=== PATIENT | female | born 1985 | race Caucasian/White ===

== ENCOUNTER 2022-04-26 18:41 | Inpatient (IN) ==
[2022-04-26] MEDS ORDERED: OXYTOCIN 30 UNITS/500 ML BAG IV PRN (18:56)
[2022-04-26] MEDS ORDERED: LIDOCAINE 1% LOCAL 20 ML VIAL INFIL PRN (18:56)
--- NOTE | 2022-04-26 19:02 | History & Physical Report ---
Date of Service April 26, 2022 Assessment & Plan (1) Active labor at term: Plan: 37-year-old -0-1-1 at 38 weeks and 4 days of gestation presented in active labor with contractions, Vital signs stable afebrile, heart rate reassuring, GBS negative, Desires epidural for pain, Plan to admit, monitor, labs, epidural for pain and anticipate . (2) Thalassemia: (3) Opioid dependence on agonist therapy: History of Present Illness Primary Care Provider: Whitney Peters DO Patient is a 37-year-old -0-1-1 at 38 weeks and 4 days of gestation who has been feeling contractions since early this morning soon after midnight. They have been irregular all day and they became more painful and irregular for the last 2 hours. She passed bloody mucus earlier but no active bleeding nor leaking. She reports good movements. Her has been uncomplicated except, 1) on Subutex for history of opioid use. 2) Smoker 3) Thalassemia GBS negative. Allergies Allergy/AdvReac Type Severity Reaction Status Date / Time latex Allergy Mild RASH HIVE Verified 10/01/19 14:12 No Known Drug Allergies Allergy Mild . Verified 10/01/19 14:12 adhesive Allergy Unknown red rashed Verified 10/01/19 14:12 rash;welts Home Medications Medication Instructions Recorded Confirmed Type buprenorphine 8 mg-naloxone 2 mg 1 tab sublingual BID 08/27/18 04/25/22 History sublingual tablet ondansetron 4 mg disintegrating 4 mg PO Q6H PRN nausea and 08/27/18 04/25/22 Rx tablet vomiting #20 tabs cyanocobalamin (vitamin B-12) mcg 04/25/22 History 1,000 mcg sublingual tablet folic acid 1 mg tablet 1 mg PO DAILY 04/25/22 04/25/22 History prenat.vits,ashley,[id number] 1 tab PO DAILY 04/25/22 04/25/22 History Patient History Medical History (Updated 04/26/22 @ 19:01 by Devika Graham MD) Endometriosis GERD (gastroesophageal reflux disease) Opioid dependence on agonist therapy Thalassemia (04/02/12) Surgical History History of laparoscopic cholecystectomy History of laparoscopy (04/17/12) Social History Smoking Status: Current every day smoker Cigarettes Per Day: 1/4 pack per day; Hx Alcohol Use: No Hx Substance Use: No Preferred Language: Icelandic Communication Ability: Effective Access Services Representative Required: No Beliefs That Will Affect Care: None marital status: Current Living Situation: Spouse Current Living Situation Comment: Lives with Feels Safe at Home: Yes Assistive Devices: Glasses OB History Full-term on September 2012, female, 8 pounds 1 ounce, 1 [employer] History No history of STDs, restrictions of herpes, chlamydia, gonorrhea Review of Systems as per Subjective / HPI Physical Exam Constitutional: WD/WN, vitals as above well developed, well nourished and + acute distress (With contractions on) Gastrointestinal (Abdomen): normal bowel sounds, soft, nontender, no hepatosplenomegaly (Gravid) Genitourinary: normal external appearance OB Exam Abdomen: + vertex Manual OB Exam: + cervical dilation 7 cm, + cervical effacement 80% and + station -2 OB Exam Monitor Tracing: + external uterine monitor used and + category I
[2022-04-26] MEDS: LACTATED RINGER'S 1,000 ML IV PRN ×2 (19:15→20:10)
[2022-04-26 19:26] LABS: Hematocrit (blood only) 28.5 % (37.0-47.0); Hemoglobin 9.2 g/dl (12.0-16.0); Mean Corpuscular Hemoglobin 24.1 pg (25.0-34.0); Mean Corpuscular Hgb Conc 32.3 g/dL (32.0-36.0); Mean Corpuscular Volume 74.6 fL (80.0-100.0); Nucleated RBC # (auto) 0.04 K/uL (0-0.12); Nucleated RBC % (auto) 0.3 %; Platelet Count 145 K/uL (130-400); RDW Standard Deviation 44.8 fL (36.4-46.3); Red Blood Count 3.82 M/uL (4.20-5.40); White Blood Count 12.62 K/ul (4.8-10.8)
[2022-04-26] MEDS ORDERED: LIDOCAINE 2%/EPINEPHRINE 1:200,000 20 ML SDV ONE (19:31)
[2022-04-26] MEDS ORDERED: ePHEDrine sulfate 50 MG/ML AMP ONE (19:31)
[2022-04-26] MEDS ORDERED: fentaNYL citrate 100 MCG/2 ML VIAL ONE (19:31)
[2022-04-26] MEDS ORDERED: BUPIVACAINE 0.25% 30 ML VIAL ONE (19:31)
[2022-04-26] MEDS ORDERED: SODIUM CHLORIDE 0.9% INJ 10 ML VIAL ONE (19:31)
[2022-04-26] MEDS ORDERED: fentaNYL 2MCG/ML ROPIVACAINE 1.25MG/ML 100 ML BAG EPI ONE (19:32)
--- NOTE | 2022-04-26 19:37 | Anesthesiology Consultation ---
Date of Service April 26, 2022 Assessment & Plan (1) Encounter for pre-operative examination: Chart Review Chart Review: Acceptable Risk for Labor Epidural Consults Requested none ASA ASA2 Proposed Anesthesia Anesthesia Type: Labor Epidural Risk / Benefits Reviewed With: PT / POA / Parent / Guardian, Accepts Plan and Informed Consent Obtained History Height/Weight Height: 5 ft 5 in Weight: 91.172 kg Allergies Allergy/AdvReac Type Severity Reaction Status Date / Time latex Allergy Mild RASH HIVE Verified 10/01/19 14:12 No Known Drug Allergies Allergy Mild . Verified 10/01/19 14:12 adhesive Allergy Unknown red rashed Verified 10/01/19 14:12 rash;welts Medications Home Medications Medication Instructions Recorded Confirmed Last Taken buprenorphine 8 mg-naloxone 2 mg 1 tab sublingual BID 08/27/18 04/25/22 04/25/22 sublingual tablet ondansetron 4 mg disintegrating 4 mg PO Q6H PRN nausea and 08/27/18 04/25/22 02/22/22 tablet vomiting #20 tabs cyanocobalamin (vitamin B-12) mcg 04/25/22 04/25/22 1,000 mcg sublingual tablet folic acid 1 mg tablet 1 mg PO DAILY 04/25/22 04/25/22 04/25/22 prenat.vits,ashley,[id number] 1 tab PO DAILY 04/25/22 04/25/22 04/24/22 Active Medications Generic Name Dose Route Start Last Admin Trade Name Freq PRN Reason Stop Dose Admin Lactated Ringer's 1,000 mls @ 150 mls/hr 04/26/22 18:56 04/26/22 19:15 Lr IV 04/28/22 18:55 999 mls/hr .[id number] PRN Administration L&D Protocol Protocol Past Medical History Medical History (Updated 04/26/22 @ 19:37 by Jamal Vaca DO) Endometriosis GERD (gastroesophageal reflux disease) Opioid dependence on agonist therapy Thalassemia (04/02/12) Exercise / Class Metabolic Activity II 4-5 Yardwork/Stairs/Walk up hill Past Surgical History Surgical History History of laparoscopic cholecystectomy History of laparoscopy (04/17/12) Past Anesthesia History No Hx of Anesthesia Complications and No Family Hx of Anesthesia Complications History of PONV No Hx of PONV and No Hx of Motion Sickness Social History Smoking Status: Current every day smoker tobacco type: cigarettes Smoking cigarettes per day: 5 Hx Alcohol Use: No Hx Substance Use: No Physical Exam Vital Signs Last Vital Signs Temp 98.2 F 04/26/22 19:16 Pulse 88 04/26/22 19:22 Resp 20 04/26/22 19:16 BP 115/70 04/26/22 19:22 ENMT Mouth: no dentition abnormality Thyromental Distance: > or= 3.5 Finger Breadths Mallampati Class: II Neck normal visual inspection Respiratory normal respiratory effort Auscultation: lungs clear to auscultation bilaterally Cardiovascular Rate/Rhythm: regular rate and regular rhythm Testing Laboratory Results 04/26/22 19:10
[2022-04-26 19:42] LABS: Albumin Globulin Ratio 1.5 (0.9-2); Albumin Level 3.7 gm/dl (3.4-5.0); BUN Creatinine Ratio 16.4 (10-20); Bilirubin,Total 1.4 mg/dl (0.2-1.0); Creatinine Clr Calc Pharmacy 142.2 ml/min; Est GFR (African American) 135.2 ml/min; Est GFR (Non-African American) 116.6 ml/min; Globulin 2.5 gm/dl (2.5-4.0); Potassium 3.6 mmol/L (3.5-5.1); Total Protein 6.2 gm/dl (6.0-8.3)
[2022-04-26] MEDS ORDERED: diphenhydrAMINE 50 MG/ML VIAL IV PRN (19:58)
[2022-04-26] MEDS ORDERED: ONDANSETRON INJ 2 MG/ML 2 ML VIAL IV PRN (19:58)
[2022-04-26] MEDS ORDERED: ePHEDrine sulfate 50 MG/ML AMP IV PRN (19:58)
[2022-04-26] MEDS ORDERED: NALBUPHINE HCL INJ 10 MG/ML AMP IV PRN (19:58)
[2022-04-26] MEDS ORDERED: NALOXONE HCL 1 MG in SODIUM CHLORIDE 0.9% 1000ML 1,000 ML IV PRN (19:58)
[2022-04-26] MEDS ORDERED: NALOXONE HCL 0.4 MG/1 ML VIAL/CARP IV PRN (19:58)
[2022-04-26] MEDS ORDERED: fentaNYL 2MCG/ML ROPIVACAINE 1.25MG/ML 100 ML BAG EPI PRN (19:58)
[2022-04-26] MEDS ORDERED: SODIUM CHLORIDE 0.9% 250 ML IV PRN (20:20)
[2022-04-26 21:36] LABS: Amphetamines+Metham, Urine Neg (Neg); Barbiturates, Urine Neg (Neg); Benzodiazepine, Urine Neg (Neg); Cocaine, Urine Neg (Neg); MDMA (Ecstacy), Urine Neg (Neg); Methadone, Urine Neg (Neg); Opiate, Urine Neg (Neg); Phencyclidine, Urine Neg (Neg)
[2022-04-27] MEDS ORDERED: OXYTOCIN 30 UNITS/500 ML BAG IV PRN ×2 (00:01→02:26)
--- NOTE | 2022-04-27 00:18 | Delivery Summary ---
Vaginal Delivery Summary Date of Service April 27, 2022 Vaginal Delivery Summary The patient was found to be fully dilated and desire to push. She pushed for about 1.5 hours and delivered the head in direct OP position, facing up. The shoulders were delivered with minimal traction. And the baby was handed off to the mother, where mouth and nose were suctioned and the cord was clamped x2 and cut it 1 minute delay. The baby was vigorously moving and crying. Then the vagina and perineum were checked for lacerations. There was a 2nd degree perineal laceration at the posterior fourchette. Rectal exam was done and good sphincter tone was noted. The gloves were changed. Perineal body mucles were held with Allis clamp and reapproximated around sphincter. Then the vagina and rest of the muscles were repaired with 2-0 Vicryl in a running fashion and excellent hemostasis achieved. There was 1st degree laceration on right labia and it was repaired with 3-0 Vicryl. Then the placenta was found to be in the vagina, delivered spontaneously as intact and complete. Uterus was explored and found to be empty, lower segment was cleared of all clots and debris's. EBL was 200 ml and the fundus was firm. The mom and baby tolerated procedure well. Baby was a viable male , Apg ars 7/9 and weight is pending. No complications happened and I was present during the whole procedure. At the end of the procedure the sponge needle instrument count was correct x2.
[2022-04-27] MEDS ORDERED: MINERAL OIL 30 ML UDC ONE (00:38)
--- NOTE | 2022-04-27 01:17 | Obstetrical Progress Note ---
Date of Service April 27, 2022 Assessment & Plan Admission and Anticipated Discharge Date Admission Date: April 26, 2022 Subjective Patient has received epidural and wanted to sleep Wanted AROM after [place] Kristina GARCIA'ed at 00:04, clear fluid Cervix was 9/ 90%/0 After 20 minutes or she felt pressure and wanted to push. She has been pushing since 00:23 and head is at +2 to +3 with pushing. FHR categ I Ctxs q 2-3 min Continue to monitor and pushing. Results & Data ([facility]) Vital Signs (Past 12 Hours) Vital Signs Temp Pulse Resp BP Pulse Ox 04/27/22 01:12 72 99 04/27/22 01:11 87 91 04/27/22 01:07 76 98 04/27/22 01:05 79 89 L 04/27/22 01:02 101 H 100 04/27/22 00:59 75 87 L 04/27/22 00:57 103 H 100 04/27/22 00:52 97 H 100 04/27/22 00:47 100 04/27/22 00:47 76 04/27/22 00:47 78 136/61 04/27/22 00:42 77 100 04/27/22 00:40 76 93 04/27/22 00:37 90 100 04/27/22 00:32 93 H 100 04/27/22 00:27 84 99 04/27/22 00:22 112 H 100 04/27/22 00:17 98 04/27/22 00:17 84 04/27/22 00:17 67 110/63 04/27/22 00:12 71 100 04/27/22 00:07 79 99 04/27/22 00:04 90 88 L 04/27/22 00:02 69 100 04/27/22 00:01 75 121/83 04/26/22 23:57 84 97 04/26/22 23:52 72 97 04/26/22 23:47 72 97 04/26/22 23:45 78 113/68 04/26/22 23:42 84 98 04/26/22 23:37 77 98 04/26/22 23:32 77 97 04/26/22 23:31 93 H 132/67 04/26/22 23:27 76 98 04/26/22 23:22 73 98 04/26/22 23:17 87 98 04/26/22 23:15 77 131/63 04/26/22 23:12 75 98 04/26/22 23:07 87 98 04/26/22 23:02 78 98 04/26/22 23:03 78 116/55 L 04/26/22 22:55 18 04/26/22 22:55 36.6 C 18 04/26/22 22:57 77 99 04/26/22 22:52 75 98 04/26/22 22:47 79 134/89 99 04/26/22 22:42 75 98 04/26/22 22:37 71 99 04/26/22 22:32 81 99 04/26/22 22:30 146 H 114/71 04/26/22 22:27 73 97 04/26/22 22:22 65 99 04/26/22 22:17 81 100 04/26/22 22:15 71 113/66 04/26/22 22:12 70 99 04/26/22 22:07 73 98 04/26/22 22:02 85 98 04/26/22 22:00 74 113/68 04/26/22 21:57 84 99 04/26/22 21:52 71 97 04/26/22 21:47 70 98 04/26/22 21:46 88 115/72 04/26/22 21:42 67 97 04/26/22 21:37 68 98 04/26/22 21:32 68 98 04/26/22 21:30 76 116/65 04/26/22 21:27 69 98 04/26/22 21:22 76 98 04/26/22 21:17 76 99 04/26/22 21:15 75 111/69 04/26/22 21:12 85 100 04/26/22 21:07 74 99 04/26/22 21:02 77 99 04/26/22 21:01 73 108/72 04/26/22 20:57 81 100 04/26/22 20:52 74 98 04/26/22 20:47 77 98 04/26/22 20:45 80 95/57 L 04/26/22 20:42 78 98 04/26/22 20:37 82 100 04/26/22 20:32 81 100 04/26/22 20:31 74 102/57 L 04/26/22 20:27 76 98 04/26/22 20:22 89 99 04/26/22 20:17 84 99 04/26/22 20:16 88 122/75 04/26/22 20:12 85 100 04/26/22 20:07 82 99 04/26/22 20:02 83 99 04/26/22 20:00 88 114/72 04/26/22 19:57 99 04/26/22 19:57 88 04/26/22 19:57 93 H 125/76 04/26/22 19:54 78 133/75 04/26/22 19:52 97 H 100 04/26/22 19:51 85 136/78 04/26/22 19:47 88 100 04/26/22 19:48 88 135/80 04/26/22 19:45 93 H 130/75 04/26/22 19:43 104 H 90 04/26/22 19:42 97 H 148/80 H 100 04/26/22 19:37 100 H 100 04/26/22 19:22 88 115/70 04/26/22 19:16 36.8 C 88 20 115/70
[2022-04-27] MEDS ORDERED: DIPHTHERIA/TETANUS/PERTUSSIS 0.5mL SYR/VIAL (Age 7+yrs) IM ONE (02:26)
[2022-04-27] MEDS ORDERED: HYDROCORTISONE ACETATE 25 MG SUPP PR PRN (02:26)
[2022-04-27] MEDS ORDERED: MEASLES, MUMPS & RUBELLA VIRUS VIAL SQ ONE (02:26)
[2022-04-27] MEDS ORDERED: oxyCODONE/ACETAMINOPHEN 5mg/325mg TAB PO PRN (02:26)
[2022-04-27] MEDS ORDERED: ACETAMINOPHEN 325 MG TAB PO PRN (02:26)
[2022-04-27] MEDS ORDERED: BENZOCAINE 20% AER SPR 82.5 GM CAN EXT PRN (02:26)
[2022-04-27] MEDS: IBUPROFEN 600 MG TAB PO PRN ×4 (04:37→20:16)
[2022-04-27] MEDS: FERROUS SULFATE 325 MG TAB PO SCH (08:03)
[2022-04-27] MEDS: DOCUSATE SODIUM 100 MG CAP PO SCH ×2 (08:03→20:16)
[2022-04-27] MEDS: PRENATAL VITAMIN 1 TAB PO SCH (08:03)
--- NOTE | 2022-04-27 09:02 | Anesthesia Procedure Note ---
Date of Service April 27, 2022 Anesthesia Post Epidural Note Vital Signs Vital Signs: Temp Pulse Resp BP Pulse Ox O2 Del Method 98.2 F 74 20 122/73 97 04/27/22 07:45 04/27/22 07:45 04/27/22 07:45 04/27/22 07:45 04/27/22 07:45 04/27/22 07:45 Pain Intensity Perineal: Pain Intensity: 6 Notes Mental Status: alert / awake / arousable and participated in evaluation Nausea / Vomiting: adequately controlled Pain: adequately controlled Airway Patency, RR, SpO2: stable & adequate BP & HR: stable & adequate Hydration State: stable & adequate Neuraxial Anesthesia: was administered and sensory block is resolving Anesthetic Complications: no major complications apparent and Pt Satisfied with anesthetic care Epidural: Removed without complications and With tip intact
[2022-04-27] MEDS: buprenorphine HCL 8 MG SUBL SL SCH (12:18)
[2022-04-27] MEDS ORDERED: bisacodyL 5 MG TABEC PO SCH (20:00)
[2022-04-28 07:20] LABS: Hematocrit (blood only) 26.8 % (37.0-47.0); Hemoglobin 8.5 g/dl (12.0-16.0); Mean Corpuscular Hemoglobin 23.9 pg (25.0-34.0); Mean Corpuscular Hgb Conc 31.7 g/dL (32.0-36.0); Mean Corpuscular Volume 75.5 fL (80.0-100.0); Mean Platelet Volume 13.8 fL (9.4-12.4); Nucleated RBC # (auto) 0.03 K/uL (0-0.12); Nucleated RBC % (auto) 0.3 %; Platelet Count 141 K/uL (130-400); RDW Coefficient of Variation 18.1 % (11.5-14.5); RDW Standard Deviation 46.3 fL (36.4-46.3); Red Blood Count 3.55 M/uL (4.20-5.40); White Blood Count 11.16 K/ul (4.8-10.8)
--- NOTE | 2022-04-28 07:35 | Obstetrical Progress Note ---
Date of Service April 28, 2022 Assessment & Plan Admission and Anticipated Discharge Date Admission Date: April 26, 2022 Subjective Patient is seen and examined. She feels well, no complaints. Ambulating without dizziness Voiding without difficulty Tolerating regular diet with out N&V Bleeding is minimal No fever/ chills/ CP/ SOB/ N&V/ Leg pain Bottle feeding without problems Vital Signs Temp Pulse Resp BP Pulse Ox O2 Del Method 04/27/22 23:10 36.5 C 85 18 119/75 98 Room Air 04/27/22 20:00 36.7 C 82 18 126/74 98 Room Air Lab Results 04/26/22 04/26/22 04/26/22 Range/Units 19:05 19:10 19:10 WBC 12.62 H (4.8-10.8) K/ul RBC 3.82 L (4.20-5.40) M/uL Hgb 9.2 L (12.0-16.0) g/dl Hct 28.5 L (37.0-47.0) % MCV 74.6 L (80.0-100.0) fL MCH 24.1 L (25.0-34.0) pg MCHC 32.3 (32.0-36.0) g/dL RDW Std Deviation 44.8 (36.4-46.3) fL RDW Coeff of Angel 18.0 H (11.5-14.5) % Plt Count 145 (130-400) K/uL MPV (9.4-12.4) fL Absolute Nucleated RBC 0.04 (0-0.12) K/uL Nucleated RBC % (auto) 0.3 % Sodium (136-145) mmol/L Potassium (3.5-5.1) mmol/L Chloride (98-107) mmol/L Carbon Dioxide (21-32) mmol/L Anion Gap (3-11) BUN (6-23) mg/dl Creatinine (0.6-1.2) mg/dl Est Cr Clr Drug Dosing ml/min Est GFR ( Amer) ml/min Est GFR (Non-Af Amer) ml/min BUN/Creatinine Ratio (10-20) Glucose (70-99(Fasting)) mg/dl Calcium (8.5-10.1) mg/dl Total Bilirubin (0.2-1.0) mg/dl AST (13-39) U/L ALT (7-52) U/L Alkaline Phosphatase (34-104) U/L Total Protein (6.0-8.3) gm/dl Albumin (3.4-5.0) gm/dl Globulin (2.5-4.0) gm/dl Albumin/Globulin Ratio (0.9-2) Urine Opiates Screen (Neg) Ur Methadone, Qual (Neg) Urine Barbiturates (Neg) Ur Phencyclidine (PCP) (Neg) U Amphetamin/Meth Scrn (Neg) MDMA (Ecstasy) Screen (Neg) U Benzodiazepines Scrn (Neg) Ur Cocaine Metabolite (Neg) U Marijuana (THC) Screen (Neg) SARS-CoV-2, RNA, NAAT NEGATIVE (NEGATIVE) Blood Type A Positive Antibody Screen NEGATIVE Crossmatch See Detail 04/26/22 04/26/22 04/28/22 Range/Units 19:10 20:45 05:58 WBC 11.16 H (4.8-10.8) K/ul RBC 3.55 L (4.20-5.40) M/uL Hgb 8.5 L (12.0-16.0) g/dl Hct 26.8 L (37.0-47.0) % MCV 75.5 L (80.0-100.0) fL MCH 23.9 L (25.0-34.0) pg MCHC 31.7 L (32.0-36.0) g/dL RDW Std Deviation 46.3 (36.4-46.3) fL RDW Coeff of Angel 18.1 H (11.5-14.5) % Plt Count 141 (130-400) K/uL MPV 13.8 H (9.4-12.4) fL Absolute Nucleated RBC 0.03 (0-0.12) K/uL Nucleated RBC % (auto) 0.3 % Sodium 135 L (136-145) mmol/L Potassium 3.6 (3.5-5.1) mmol/L Chloride 106 (98-107) mmol/L Carbon Dioxide 21 (21-32) mmol/L Anion Gap 8 (3-11) BUN 10 (6-23) mg/dl Creatinine 0.61 (0.6-1.2) mg/dl Est Cr Clr Drug Dosing 142.2 ml/min Est GFR ( Amer) 135.2 ml/min Est GFR (Non-Af Amer) 116.6 ml/min BUN/Creatinine Ratio 16.4 (10-20) Glucose 81 (70-99(Fasting)) mg/dl Calcium 9.0 (8.5-10.1) mg/dl Total Bilirubin 1.4 H (0.2-1.0) mg/dl AST 17 (13-39) U/L ALT 15 (7-52) U/L Alkaline Phosphatase 111 H (34-104) U/L Total Protein 6.2 (6.0-8.3) gm/dl Albumin 3.7 (3.4-5.0) gm/dl Globulin 2.5 (2.5-4.0) gm/dl Albumin/Globulin Ratio 1.5 (0.9-2) Urine Opiates Screen Neg (Neg) Ur Methadone, Qual Neg (Neg) Urine Barbiturates Neg (Neg) Ur Phencyclidine (PCP) Neg (Neg) U Amphetamin/Meth Scrn Neg (Neg) MDMA (Ecstasy) Screen Neg (Neg) U Benzodiazepines Scrn Neg (Neg) Ur Cocaine Metabolite Neg (Neg) U Marijuana (THC) Screen Neg (Neg) SARS-CoV-2, RNA, NAAT (NEGATIVE) Blood Type Antibody Screen Crossmatch PE: General: Alert, orientedx3, NAD Abd: soft, NT, fundus firm, below Umbilicus Perineum intact, Lochia rubra minimal Ext; NT, no edema AP: 37 yo s/p , ppd# 1 VSS Afebrile doing well Continue routine care All questions were answered Desires d/c to nesting today, baby has to stay Results & Data ([facility]) Vital Signs (Past 12 Hours) Vital Signs Temp Pulse Resp BP Pulse Ox O2 Del Method 04/27/22 23:10 36.5 C 85 18 119/75 98 Room Air 04/27/22 20:00 36.7 C 82 18 126/74 98 Room Air
[2022-04-28] MEDS: FERROUS SULFATE 325 MG TAB PO SCH (08:29)
[2022-04-28] MEDS: PRENATAL VITAMIN 1 TAB PO SCH (08:29)
[2022-04-28] MEDS: DOCUSATE SODIUM 100 MG CAP PO SCH (08:29)
[2022-04-28] MEDS: IBUPROFEN 600 MG TAB PO PRN (08:29)
[2022-04-28] MEDS: buprenorphine HCL 8 MG SUBL SL SCH (08:30)
[2022-04-29] MEDS ORDERED: bisacodyL 10 MG SUPP PR PRN (02:26)
== END 2022-04-28 17:45 | disposition home or self-care (01) | DRG 806 ==
LOC: OPB 18:41 → 4S1 18:42 → 4E2 04-27 04:52